=== PATIENT | female | born 1990 | race Caucasian/White ===

== ENCOUNTER 2017-04-22 21:36 | Emergency (ER) | payer BC, MEDICAID ==
--- NOTE | 2017-04-22 21:57 | Emergency Department Record ---
History of Present Illness - General Chief Complaint: Numbness Stated Complaint: NUMBNESS ON RT SIDE OF JAW Time Seen by Provider: 04/22/17 21:55 Source: Patient Mode of Arrival: Ambulatory Limitations: No limitations - History of Present Illness Initial Comments: 26 yo female presents to ED for evaluation of right sided facial numbness along her mandible. Patient reports that she "popped a pimple" on her right lateral neck just prior to her symptoms beginning. Patient denies facial weakness, inability to close her eye, or blurred vision symptoms. Patient denies health problems at her baseline. Onset/Timin -: Minutes(s) Location: Right face History of same: No Place: Home Severity: Mild Improves With: None Worsens With: None On Anticoagulants: No Context: Gradual onset Associated Symptoms: Denies other symptoms Treatments Prior to Arrival: None - Amarjit Coma Scale Eye Response: (4) Open spontaneously Motor Response: (6) Obeys commands Verbal Response: (5) Oriented Amarjit Total: 15 - Related Data Home Medications: Home Medications Medication Instructions Recorded Confirmed Last Taken Ibuprofen 600 mg PO DAILY PRN 04/22/17 04/22/17 Unknown Allergies/Adverse Reactions: Allergies Allergy/AdvReac Type Severity Reaction Status Date / Time No Known Drug Allergies Allergy Unverified 03/15/16 09:56 Travel Screening - Travel/Exposure Within Last 30 Days Have you traveled within the last 30 days?: No - Travel Symptoms Symptom Screening: None Review of Systems Constitutional: Denies: Chills, Fever, Malaise, Night sweats Eyes: Denies: Eye discharge, Eye pain ENT: Denies: Congestion, Ear pain, Epistaxis Respiratory: Denies: Cough, Dyspnea Cardiovascular: Denies: Chest pain, Dyspnea on exertion Endocrine: Denies: Fatigue, Heat or cold intolerance Gastrointestinal: Denies: Abdominal pain, Nausea, Vomiting Genitourinary: Denies: Incontinence, Retention Musculoskeletal: Denies: Back pain, Gout, Joint swelling Skin: Denies: Bruising, Change in color Neurological: Reports: Numbness. Denies: Abnormal gait, Confusion, Headache, Seizure Psychiatric: Denies: Anxiety Hematological/Lymphatic: Denies: Anemia, Blood Clots Past Medical History - SOCIAL HISTORY Smoking Status: Former smoker Alcohol Use: Rare Drug Use: None - RESPIRATORY Hx Respiratory Disorders: No - CARDIOVASCULAR Hx Cardio Disorders: No - NEURO Hx Neuro Disorders: No - GI Hx GI Disorders: No - Hx Genitourinary Disorders: No - ENDOCRINE Hx Endocrine Disorders: No - MUSCULOSKELETAL Hx Musculoskeletal Disorders: No - PSYCH Hx Psych Problems: No - HEMATOLOGY/ONCOLOGY Hx Hematology/Oncology Disorders: No Family Medical History Any Significant Family History?: Yes Hx Diabetes: Brother/Sister, Grandparents Hx Heart Disease: Father, Grandparents Hx Stroke: Father Physical Exam - General General Appearance: Alert, Oriented x3, Cooperative, No acute distress Limitations: No limitations - Head Head exam: Atraumatic, Normocephalic, Normal inspection Head exam detail: negative: Abrasion, Contusion, Perez's sign, General tenderness, Hematoma, Laceration - Eye Eye exam: Normal appearance. negative: Conjunctival injection, Periorbital swelling, Periorbital tenderness, Scleral icterus - ENT Ear exam: negative: Auricular hematoma, Auricular trauma Nasal Exam: negative: Active bleeding, Discharge, Dried blood, Foreign body Mouth exam: negative: Drooling, Laceration, Muffled voice, Tongue elevation - Neck Neck exam: Normal inspection. negative: Meningismus, Tenderness - Respiratory Respiratory exam: Normal lung sounds bilaterally. negative: Rales, Respiratory distress, Rhonchi, Stridor - Cardiovascular Cardiovascular Exam: Regular rate, Normal rhythm, Normal heart sounds - GI/Abdominal GI/Abdominal exam: Soft. negative: Rebound, Rigid, Tenderness - Rectal Rectal exam: Deferred - exam: Deferred - Extremities Extremities exam: Normal inspection. negative: Calf tenderness, Pedal edema, Tenderness - Back Back exam: Denies: CVA tenderness (R), CVA tenderness (L) - Neurological Neurological exam: Alert, CN II-XII intact, Normal gait, Oriented X3, Other ( NIH stroke scale 0) - Psychiatric Psychiatric exam: Normal affect, Normal mood - Skin Skin exam: Normal color. negative: Abrasion Type of lesion: negative: abrasion Course Vital Signs 04/22/17 21:43 Temperature 98.1 F Pulse Rate [ 74 Pulse Ox Probe] Respiratory 20 Rate Blood Pressure 137/83 [Left Arm] Pulse Ox 99 - Reevaluation(s) Reevaluation #1: 04/22/17 22:02 Patient is well appearing on examination with NIH stroke scale 0. Patient has no clinical signs of Russell's at this time, however the patient was counseled that her symptoms my progress into a Russell's over the next 1-3 days and what to expect should these symptoms occur. Patient verbalizes understanding of all instructions and appears stable for discharge at this time. Disposition Disposition: Discharge Clinical Impression: Right facial numbness Disposition: Home, Self-Care Condition: (2) Stable Instructions: Paresthesia (ED) Additional Instructions: Return to ED if your symptoms worsen or if you have any concerns. Follow-up with your family doctor in 3-5 days as directed. Forms: Patient Portal Access Time of Disposition: 21:57 Quality - Quality Measures Quality Measures: N/A - Blood Pressure Screening Does Patient Have Any of the Following: No Blood Pressure Classification: Pre-Hypertensive BP Reading Systolic Measurement: 137 Diastolic Measurement: 83 Screening for High Blood Pressure: < Pre-Hypertensive BP, F/U Documented > [ G8950] Pre-Hypertensive Follow-up Interventions: Referral to alternative/primary care provider.
== END 2017-04-22 22:05 | disposition home or self-care (01) ==
LOC: ER 21:36
DX: R20.0 Anesthesia of skin (principal); Z87.891 Personal history of nicotine dependence
CPT/HCPCS: 99282

== ENCOUNTER 2018-03-11 16:03 | Emergency (ER) | payer MEDICAID ==
--- NOTE | 2018-03-11 18:57 | Emergency Department Record ---
History of Present Illness - General Chief complaint: Mouth sores/ulcers Stated complaint: SORES ON LIPPS Time Seen by Provider: 03/11/18 18:53 Source: Patient Mode of Arrival: Ambulatory Limitations: No limitations - History of Present Illness Initial comments: 27 yo female presents to ED for evaluation of cold sores for the past 2-3 days, reports a history of cold sores that she has been taking OTC medications for at home. Patient denies fevers, chills, or recent illness. Patient denies health problems other than cold sores previously. MD complaint: Other Onset/Timin -: Days(s) Location: Upper lip, Lower lip Severity: Moderate Severity scale (1-10): 8 Quality: Burning Consistency: Constant Improves with: None Worsens with: None - Related Data Previous Rx's Medication Instructions Recorded Acyclovir 400 mg PO TID #15 tablet 03/11/18 Allergies Allergy/AdvReac Type Severity Reaction Status Date / Time No Known Drug Allergies Allergy Unverified 09/14/17 11:25 Travel Screening - Travel/Exposure Within Last 30 Days Have you traveled within the last 30 days?: No - Travel/Exposure Within Last Year Have you traveled outside the [place] in the last year?: No - Additonal Travel Details Have you been exposed to anyone with a communicable illness?: No - Travel Symptoms Symptom Screening: None Review of Systems Constitutional: Denies: Chills, Fever, Malaise, Night sweats Eyes: Denies: Eye discharge, Eye pain ENT: Denies: Congestion, Ear pain, Epistaxis Respiratory: Denies: Cough, Dyspnea Cardiovascular: Denies: Chest pain, Dyspnea on exertion Endocrine: Denies: Fatigue, Heat or cold intolerance Gastrointestinal: Denies: Abdominal pain, Nausea, Vomiting Genitourinary: Denies: Incontinence, Retention Musculoskeletal: Denies: Arthralgia, Back pain Skin: Denies: Bruising, Change in color Neurological: Denies: Abnormal gait, Confusion, Headache, Seizure Psychiatric: Denies: Anxiety Hematological/Lymphatic: Denies: Anemia, Blood Clots Past Medical History - SOCIAL HISTORY Smoking Status: Former smoker Alcohol Use: None Drug Use: None - RESPIRATORY Hx Respiratory Disorders: No - CARDIOVASCULAR Hx Cardio Disorders: No - NEURO Hx Neuro Disorders: No - GI Hx GI Disorders: No - Hx Genitourinary Disorders: No - ENDOCRINE Hx Endocrine Disorders: No - MUSCULOSKELETAL Hx Musculoskeletal Disorders: No - PSYCH Hx Psych Problems: No - HEMATOLOGY/ONCOLOGY Hx Hematology/Oncology Disorders: No Family Medical History Any Significant Family History?: Yes Hx Diabetes: Brother/Sister, Grandparents Hx Heart Disease: Father, Grandparents Hx Stroke: Father Physical Exam - General General Appearance: Alert, Oriented x3, Cooperative, Mild distress Limitations: No limitations - Head Head exam: Atraumatic, Normocephalic, Normal inspection Head exam detail: negative: Abrasion, Contusion, Perez's sign, General tenderness, Hematoma, Laceration - Eye Eye exam: Normal appearance. negative: Conjunctival injection, Periorbital swelling, Periorbital tenderness, Scleral icterus - ENT ENT exam: Other (Oral lesions to the upper and lower lips bilaterally) Ear exam: negative: Auricular hematoma, Auricular trauma Nasal Exam: negative: Active bleeding, Discharge, Dried blood, Foreign body Mouth exam: negative: Drooling, Laceration, Muffled voice, Tongue elevation Throat exam: negative: Tonsillar erythema, Tonsillomegaly, R peritonsillar mass , L peritonsillar mass - Neck Neck exam: Normal inspection. negative: Meningismus, Tenderness - Respiratory Respiratory exam: Normal lung sounds bilaterally. negative: Rales, Respiratory distress, Rhonchi, Stridor - Cardiovascular Cardiovascular Exam: Regular rate, Normal rhythm, Normal heart sounds - GI/Abdominal GI/Abdominal exam: Soft. negative: Rebound, Rigid, Tenderness - Rectal Rectal exam: Deferred - exam: Deferred - Extremities Extremities exam: Normal inspection. negative: Pedal edema, Tenderness - Back Back exam: Denies: CVA tenderness (R), CVA tenderness (L) - Neurological Neurological exam: Alert, Normal gait, Oriented X3 - Psychiatric Psychiatric exam: Normal affect, Normal mood - Skin Skin exam: Normal color. negative: Abrasion Type of lesion: negative: abrasion Course Vital Signs 03/11/18 17:48 Temperature 97.9 F Pulse Rate 72 Respiratory 20 Rate Blood Pressure 132/85 Pulse Ox 99 - Reevaluation(s) Reevaluation #1: 03/11/18 19:00 History and examination appears c/w oral herpes, will treat with acyclovir as directed. Patient appears stable for discharge at this time. Disposition Disposition: Discharge Clinical Impression: Recurrent cold sores Disposition: Home, Self-Care Condition: (2) Stable Instructions: Oral Herpes Simplex Virus Infections (ED) Additional Instructions: Return to ED if your symptoms worsen or if you have any concerns. Valacyclovir as directed. Follow-up with your family doctor in 3-5 days as directed. Prescriptions: Acyclovir 400 mg PO TID #15 tablet Forms: Patient Portal Access Time of Disposition: 18:55 Quality - Quality Measures Quality Measures: N/A - Blood Pressure Screening Does Patient Have Any of the Following: No Blood Pressure Classification: Pre-Hypertensive BP Reading Systolic Measurement: 132 Diastolic Measurement: 85 Screening for High Blood Pressure: < Pre-Hypertensive BP, F/U Documented > [ G8950] Pre-Hypertensive Follow-up Interventions: Referral to alternative/primary care provider.
== END 2018-03-11 19:09 | disposition home or self-care (01) ==
LOC: ER 16:03
DX: B00.1 Herpesviral vesicular dermatitis (principal); Z87.891 Personal history of nicotine dependence
CPT/HCPCS: 99282

== ENCOUNTER 2018-08-12 09:33 | Emergency (ER) | payer MEDICAID ==
--- NOTE | 2018-08-12 09:57 | Emergency Department Record ---
History of Present Illness - General Chief complaint: Mouth sores/ulcers Stated complaint: OUTBREAK OF COLD SORES Time Seen by Provider: 08/12/18 09:56 Source: Patient Mode of Arrival: Ambulatory Limitations: No limitations - History of Present Illness Initial comments: 27 yo female presents with painful cold sores in her mouth for several days. No difficulty swallowing. No fevers. No swelling. No sore throat. Severity: Mild Severity scale (1-10): 2 Quality: Aching Consistency: Constant Improves with: None Worsens with: None - Related Data Previous Rx's Medication Instructions Recorded Valacyclovir HCl [Valtrex] 500 mg PO Q12H #14 tablet 08/12/18 Allergies Allergy/AdvReac Type Severity Reaction Status Date / Time No Known Drug Allergies Allergy Verified 08/12/18 09:50 Travel Screening - Travel/Exposure Within Last 30 Days Have you traveled within the last 30 days?: No Review of Systems Constitutional: Denies: Chills, Fever, Malaise, Weakness Eyes: Denies: Eye discharge, Eye pain, Photophobia, Vision change ENT: Reports: Other. Denies: Congestion, Dental pain, Ear pain, Epistaxis, Throat pain Respiratory: Denies: Cough, Dyspnea Cardiovascular: Denies: Chest pain, Palpitations, Syncope Endocrine: Denies: Fatigue Gastrointestinal: Denies: Abdominal pain, Diarrhea, Nausea, Vomiting Genitourinary: Denies: Dysuria, Urgency Musculoskeletal: Denies: Arthralgia, Back pain, Myalgia Skin: Denies: Bruising, Change in color, Rash Neurological: Denies: Headache Psychiatric: Denies: Anxiety Hematological/Lymphatic: Denies: Easy bleeding, Easy bruising Past Medical History - SOCIAL HISTORY Smoking Status: Former smoker Alcohol Use: None Drug Use: None - RESPIRATORY Hx Respiratory Disorders: No - CARDIOVASCULAR Hx Cardio Disorders: No - NEURO Hx Neuro Disorders: No - GI Hx GI Disorders: No - Hx Genitourinary Disorders: No - ENDOCRINE Hx Endocrine Disorders: No - MUSCULOSKELETAL Hx Musculoskeletal Disorders: No - PSYCH Hx Psych Problems: No - HEMATOLOGY/ONCOLOGY Hx Hematology/Oncology Disorders: No Family Medical History Any Significant Family History?: Yes Hx Diabetes: Brother/Sister, Grandparents Hx Heart Disease: Father, Grandparents Hx Stroke: Father Physical Exam - General General Appearance: Alert, Oriented x3, Cooperative, No acute distress Limitations: No limitations - Head Head exam: Atraumatic, Normal inspection Image of Face/Head: 1 - scattered small papules, erythema - Eye Eye exam: Normal appearance, PERRL. negative: Conjunctival injection, Periorbital swelling, Scleral icterus - ENT ENT exam: Normal exam, Mucous membranes moist. negative: Mucous membranes dry, Normal orophraynx Ear exam: Normal external inspection Nasal Exam: Normal inspection Mouth exam: Normal external inspection Teeth exam: Normal inspection Throat exam: negative: Tonsillar erythema, Tonsillomegaly, Tonsillar exudate, R peritonsillar mass, L peritonsillar mass - Neck Neck exam: Normal inspection. negative: Lymphadenopathy, Tenderness - Neurological Neurological exam: Alert, Oriented X3 - Psychiatric Psychiatric exam: Normal affect, Normal mood - Skin Skin exam: Dry, Intact, Normal color, Warm Course Vital Signs 08/12/18 09:48 Temperature 98.6 F Pulse Rate 85 Respiratory 20 Rate Blood Pressure 121/78 Pulse Ox 96 Disposition Disposition: Discharge Clinical Impression: Viral stomatitis Disposition: Home, Self-Care Condition: (1) Good Instructions: Mouth Care (ED), Gingivostomatitis (ED) Additional Instructions: Call your doctor for the next available follow up appointment Review this ER visit and the tests performed with your family doctor Return to the ER for a recheck if worse, any new concerns or questions Take the prescriptions provided as directed Prescriptions: Valacyclovir HCl [Valtrex] 500 mg PO Q12H #14 tablet Forms: Patient Portal Access Time of Disposition: 10:04 Quality - Quality Measures Quality Measures: N/A - Blood Pressure Screening Does Patient Have Any of the Following: No Blood Pressure Classification: Pre-Hypertensive BP Reading Systolic Measurement: 121 Diastolic Measurement: 78 Screening for High Blood Pressure: < Pre-Hypertensive BP, F/U Documented > [G8950] Pre-Hypertensive Follow-up Interventions: Referral to alternative/primary care provider.
== END 2018-08-12 10:11 | disposition home or self-care (01) ==
LOC: ER 09:33
DX: K12.1 Other forms of stomatitis (principal); Z87.891 Personal history of nicotine dependence
CPT/HCPCS: 99282

== ENCOUNTER 2019-01-21 07:28 | Day surgery (SDC) | payer MEDICAID ==
[~2019-01-21 07:28] MED LIST: ACETAMINOPHEN 1,000 MG/100 ML BTL IVPB ONE; FAMOTIDINE 20MG TABLET PO ONE; METOCLOPRAMIDE 10 MG TABLET PO ONE; SCOPOLAMINE 1 PATCH TDSY TD ONE
[2019-01-21] MEDS ORDERED: LIDOCAINE 2% MDV (20MG/ML) 20ML VIAL IV ONE (07:29)
[2019-01-21] MEDS ORDERED: DEXAMETHASONE 4 MG/ML 1ML VIAL IVP ONE (07:29)
[2019-01-21] MEDS ORDERED: ROCURONIUM BROMIDE 50MG/5ML VIAL IV ONE (07:29)
[2019-01-21] MEDS ORDERED: *PACU ONLY* KETAMINE HCL 10 MG/ML (20ML) VIAL IV ONE (07:29)
[2019-01-21] MEDS ORDERED: LABETALOL HCL 5MG/ML, 20ML VIAL IV ONE (07:29)
[2019-01-21] MEDS ORDERED: MIDAZOLAM HCL 2MG/2ML VIAL IV ONE (07:29)
[2019-01-21] MEDS ORDERED: DESFLURANE 240 ML BTL INH ONE (07:29)
[2019-01-21] MEDS ORDERED: SUGAMMADEX SODIUM 200 MG/2 ML VIAL IV ONE (07:29)
[2019-01-21] MEDS ORDERED: PROPOFOL 10 MG/ML VIAL IV ONE (07:29)
[2019-01-21] MEDS ORDERED: KETOROLAC 30 MG/ML VIAL IVP ONE (07:29)
[2019-01-21] MEDS ORDERED: ONDANSETRON HCL IV 4 MG/2 ML VIAL IVP ONE (07:29)
[2019-01-21] MEDS ORDERED: RINGERS SOLUTION,LACTATED 1,000 ML IV ONE (08:18)
[2019-01-21] MEDS ORDERED: BUPIVACAINE 0.25% W/EPI MPF 30ML VIAL SQ ONE (09:45)
[2019-01-21] MEDS ORDERED: HYDROCODONE/APAP 5/325MG TABLET PO ONE (10:26)
--- NOTE | 2019-01-22 08:30 | Operative Note ---
DATE OF SURGERY: 01/21/2019 SURGEON: Phong Sol DO PREOPERATIVE DIAGNOSIS: Chronic cholecystitis. POSTOPERATIVE DIAGNOSIS: Chronic cholecystitis. OPERATION: Laparoscopic cholecystectomy. INDICATION: The patient is a 28-year-old female who was seen preoperatively. She was having issues with ongoing right subcostal postprandial pain. We did discuss cholecystectomy versus medical management. She desired surgical intervention. Risks include but are not limited to bleeding, infection, ductal injury, possible conversion to open, postoperative bile leak. I let her know she was at high risk for postop complications due to her morbid obesity. PROCEDURE: Thereafter, consent was signed and questions answered. She was taken to the operating room and placed in a supine position. General anesthesia was administered per the department of anesthesia. The patient's abdomen was prepped and draped in the usual sterile fashion. The infraumbilical region was anesthetized with a total of 5 mL of 0.25% Sensorcaine with epinephrine. A 2.5 cm infraumbilical incision was made. This was carried down bluntly to the anterior rectus fascia. This was incised. Stelal clamps were placed on the fascial edges and brought up into the wound. Stay sutures of 0 Vicryl were placed. Posterior rectus sheath was identified and incised. The peritoneal cavity was entered bluntly. At this time, a 10 mm blunt Ramesh port was placed. Adequate pneumoperitoneum was established. Under direct visualization, additional 5 mm epigastric and two 5 mm right subcostal ports were placed. The patient was rotated into reverse Trendelenburg with rotation to left. The gallbladder was retracted in a cephalad and lateral direction opening up the angle of Calot. The hepatocystic triangle was thoroughly dissected out. There was no aberrant anatomy, no posterior ductal structures. The cystic duct and cystic artery were clearly identified. Each one was doubly clipped and cut in a standard fashion. Gallbladder was then taken off the liver bed with ADRIEN Harmonic. This was extracted through the umbilical port. Right upper quadrant was rechecked and found to be hemostatic. No bleeding. No bile leaking. No bowel injury noted. The patient was leveled out. The pneumoperitoneum was released. All ports were removed. The fascia was closed with 0 Vicryl in a [id number] fashion. The skin at all ports was closed with 4-0 Vicryl. The patient was taken to the recovery room in stable condition. FINDINGS AT THE TIME OF SURGERY: Chronic cholecystitis. MTDD
== END 2019-01-21 10:44 | disposition home or self-care (01) ==
LOC: SUR 07:28
PROVIDERS: ATTEND Surgery
DX: K81.1 Chronic cholecystitis (principal); E28.2 Polycystic ovarian syndrome; E66.01 Morbid (severe) obesity due to excess calories
CPT/HCPCS: 81025; J1885; J2405; J3490; J7120

== ENCOUNTER 2019-01-23 22:11 | Emergency (ER) | payer MEDICAID ==
--- NOTE | 2019-01-23 22:24 | Emergency Department Record ---
History of Present Illness - General Chief Complaint: Wound, check Stated Complaint: SURGICAL WOUND OPENING/GALL BLADDER Time Seen by Provider: 01/23/19 22:22 Source: Patient Mode of arrival: Ambulatory Limitations: No limitations - History of Present Illness Initial Comments: 28 yo female presents to ED for evaluation following laparoscopic gallbladder surgery yesterday for evaluation of one of her laparoscopic wound sites. Patient reports that the wound "opened up" at home with mild clear drainage present, denies redness, fevers, chills, or purulent drainage from the wound site. Patient reports that Dr. Sol performed her surgery, denies complications following her surgery. MD Complaint: Wound re-check Onset/Timin -: Days(s) Initial Visit For: Laceration Returns Today for: Wound recheck Symptoms Since Prior Visit: Other Associated Symptoms: None - Related Data Allergies Allergy/AdvReac Type Severity Reaction Status Date / Time peanut AdvReac Intermediate cold sores Verified 01/11/19 14:07 dark chocolate AdvReac Intermediate cold sores Uncoded 01/11/19 14:07 jello AdvReac Intermediate cold sores Uncoded 01/11/19 14:07 Review of Systems Constitutional: Denies: Chills, Fever, Malaise, Night sweats Eyes: Denies: Eye discharge, Eye pain ENT: Denies: Congestion, Ear pain, Epistaxis Respiratory: Denies: Cough, Dyspnea Cardiovascular: Denies: Chest pain, Dyspnea on exertion Endocrine: Denies: Fatigue, Heat or cold intolerance Gastrointestinal: Denies: Abdominal pain, Nausea, Vomiting Genitourinary: Denies: Incontinence, Retention Musculoskeletal: Denies: Arthralgia, Back pain Skin: Reports: Other (Wound "opened up" infra-umbilical region). Denies: Bruising, Change in color Neurological: Denies: Abnormal gait, Confusion, Headache, Seizure Psychiatric: Denies: Anxiety Hematological/Lymphatic: Denies: Anemia, Blood Clots Past Medical History - SOCIAL HISTORY Smoking Status: Former smoker - RESPIRATORY Hx Respiratory Disorders: No - CARDIOVASCULAR Hx Cardio Disorders: No - NEURO Hx Neuro Disorders: No - GI Hx GI Disorders: No - Hx Genitourinary Disorders: No - ENDOCRINE Hx Endocrine Disorders: No - MUSCULOSKELETAL Hx Musculoskeletal Disorders: No - PSYCH Hx Psych Problems: No - HEMATOLOGY/ONCOLOGY Hx Hematology/Oncology Disorders: No Family Medical History Hx Diabetes: Brother/Sister, Grandparents Hx Heart Disease: Father, Grandparents Hx Stroke: Father Physical Exam - General General Appearance: Alert, Oriented x3, Cooperative, No acute distress Limitations: No limitations - Head Head exam: Atraumatic, Normocephalic, Normal inspection Head exam detail: negative: Abrasion, Contusion, Perez's sign, General tenderness, Hematoma, Laceration - Eye Eye exam: Normal appearance. negative: Conjunctival injection, Periorbital swelling, Periorbital tenderness, Scleral icterus - ENT Ear exam: negative: Auricular hematoma, Auricular trauma Nasal Exam: negative: Active bleeding, Discharge, Dried blood, Foreign body Mouth exam: negative: Drooling, Laceration, Muffled voice, Tongue elevation - Neck Neck exam: Normal inspection. negative: Meningismus, Tenderness - Respiratory Respiratory exam: Normal lung sounds bilaterally. negative: Rales, Respiratory distress, Rhonchi, Stridor - Cardiovascular Cardiovascular Exam: Regular rate, Normal rhythm, Normal heart sounds - GI/Abdominal GI/Abdominal exam: Soft, Other (Mild loosening of the sutures of the infra- umbilical incision with mild serous draiange present, no erythema around the wound, no evidence for infection on examination.). negative: Rebound, Rigid, Tenderness - Rectal Rectal exam: Deferred - exam: Deferred - Extremities Extremities exam: Normal inspection. negative: Pedal edema, Tenderness - Back Back exam: Denies: CVA tenderness (R), CVA tenderness (L) - Neurological Neurological exam: Alert, Normal gait, Oriented X3 - Psychiatric Psychiatric exam: Normal affect, Normal mood - Skin Skin exam: Normal color. negative: Abrasion Type of lesion: negative: abrasion Course - Reevaluation(s) Reevaluation #1: 01/23/19 22:28 Steri-strips were applied to close the patient's surgical site Instructed to call Dr. Sol's office for a follow-up appointment. Patient appears stable for discharge at this time. Disposition Disposition: Discharge Clinical Impression: Surgical wound dehiscence Qualifiers: Encounter type: initial encounter Qualified Code(s): T81.31XA - Disruption of external operation (surgical) wound, not elsewhere classified, initial encounter Disposition: Home, Self-Care Condition: (2) Stable Instructions: Steristrips (ED) Additional Instructions: Return to ED if your symptoms worsen or if you have any concerns. Call Dr. Sol's office in the morning for a follow-up appointment. Keep steri-strips clean, dry until seen by Dr. Sol. Forms: Patient Portal Access Time of Disposition: 22:24 Quality - Quality Measures Quality Measures: N/A - Blood Pressure Screening Does Patient Have Any of the Following: No Systolic Measurement: ~
== END 2019-01-23 22:35 | disposition home or self-care (01) ==
LOC: ER 22:11
DX: T81.31XA Disruption of external operation (surgical) wound, not elsewhere classified, initial encounter (principal)
CPT/HCPCS: 99282

== ENCOUNTER 2019-03-14 23:35 | Emergency (ER) | payer MEDICAID ==
--- NOTE | 2019-03-14 23:43 | Emergency Department Record ---
History of Present Illness - General Chief complaint: ENT Stated complaint: THROAT PAIN Time Seen by Provider: 03/14/19 23:36 Source: Patient Mode of Arrival: Ambulatory Limitations: No limitations - History of Present Illness Initial comments: 28 yo female presents with about two weeks of a fullness in the throat. She had a mild upper respiratory illness that preceded this. The feeling is like a mild vague pressure in the lower throat. No voice changes. No fever. No swelling. No nausea, vomiting or diarrhea. No sweating. No rash. No difficulty swallowing but she feels the vague sensation. No cough, chest pain, or abdominal pain. MD complaint: Sore throat -: Week(s) (2) Location: Other Severity: Moderate Quality: Other (Fullness) Consistency: Intermittent Improves with: None Worsens with: Swallowing Context-Epistaxis: Other Context- Dental: Other Context- Ear: Other Associated Symptoms: Other (Recent URI) - Related Data Allergies Allergy/AdvReac Type Severity Reaction Status Date / Time peanut AdvReac Intermediate cold sores Verified 03/14/19 23:48 dark chocolate AdvReac Intermediate cold sores Uncoded 01/11/19 14:07 jello AdvReac Intermediate cold sores Uncoded 01/11/19 14:07 Review of Systems Constitutional: Denies: Chills, Fever, Malaise, Night sweats, Weakness Eyes: Denies: Eye discharge ENT: Reports: As per HPI, Throat pain. Denies: Congestion, Epistaxis Respiratory: Denies: Cough, Dyspnea, Hemoptysis, Stridor, Wheezes Cardiovascular: Denies: Chest pain, Syncope Endocrine: Denies: Fatigue Gastrointestinal: Denies: Abdominal pain, Diarrhea, Nausea, Vomiting Genitourinary: Denies: Dysuria, Urgency Musculoskeletal: Denies: Arthralgia, Back pain, Myalgia Skin: Denies: Bruising, Change in color, Rash Neurological: Denies: Headache Psychiatric: Denies: Anxiety Hematological/Lymphatic: Denies: Easy bleeding, Easy bruising Past Medical History - SOCIAL HISTORY Smoking Status: Former smoker - RESPIRATORY Hx Respiratory Disorders: No - CARDIOVASCULAR Hx Cardio Disorders: No - NEURO Hx Neuro Disorders: No - GI Hx GI Disorders: No - Hx Genitourinary Disorders: No - ENDOCRINE Hx Endocrine Disorders: No - MUSCULOSKELETAL Hx Musculoskeletal Disorders: No - PSYCH Hx Psych Problems: No - HEMATOLOGY/ONCOLOGY Hx Hematology/Oncology Disorders: No Family Medical History Hx Diabetes: Brother/Sister, Grandparents Hx Heart Disease: Father, Grandparents Hx Stroke: Father Physical Exam - General General Appearance: Alert, Oriented x3, Cooperative, No acute distress Limitations: No limitations - Head Head exam: Atraumatic, Normal inspection - Eye Eye exam: Normal appearance. negative: Conjunctival injection - ENT ENT exam: Normal exam, Mucous membranes moist, Normal orophraynx. negative: Mucous membranes dry Ear exam: Normal external inspection Nasal Exam: Normal inspection Mouth exam: Normal external inspection, Tongue normal, Other (Normal uvula without swelling). negative: Drooling, Muffled voice (clear voice), Tongue elevation, Trismus Teeth exam: Normal inspection. negative: Gingival enlargement Throat exam: negative: Tonsillar erythema, Tonsillomegaly, Tonsillar exudate, R peritonsillar mass, L peritonsillar mass - Neck Neck exam: Full ROM, Thyromegaly (Equivocal enlargment of the thyroid, the examination difficult due to habitus). negative: Normal inspection, Lymphadenopathy, Meningismus, Tenderness - Respiratory Respiratory exam: Normal lung sounds bilaterally. negative: Rhonchi, Stridor, Wheezes - Cardiovascular Cardiovascular Exam: Regular rate, Normal rhythm, Normal heart sounds - Rectal Rectal exam: Deferred - exam: Deferred - Neurological Neurological exam: Alert, Oriented X3 - Psychiatric Psychiatric exam: Normal affect, Normal mood. negative: Agitated, Anxious - Skin Skin exam: Dry, Intact, Normal color, Warm Course - Reevaluation(s) Reevaluation #1: The patient appears comfortable, normal voice, normal examination of the oral cavity and its anatomy The thyroid might feel enlarged but limitation due to habitus. No sign of infectious process, no obvious mass or abnormal physical examination findings. I recommend labs and ST Neck We also discussed possible outpatient US of the thyroid 03/15/19 00:07 03/15/19 00:21 The CBC is normal The CMP is normal The HCG is negative 03/15/19 00:32 TSH is normal 03/15/19 00:32 ST Neck is negative No indication for CT at this time given the large radiation exposure with normal exam and labs Recommendation is for close follow up with her PCP Consider US, follow up CT, direct visualization with GI or ENT Medical Decision Making - Lab Data Result diagrams: 03/14/19 23:45 03/14/19 23:45 Disposition Disposition: Discharge Clinical Impression: Throat pain Disposition: Home, Self-Care Condition: (1) Good Instructions: Dysphagia (ED) Additional Instructions: Call your doctor tomorrow Consider an outpatient ultrasound of the thyroid to further evaluate your symptoms Be seen immediately if worse, swelling, fever, vomiting, voice changes or any new concerns Forms: Patient Portal Access Time of Disposition: 00:32 Quality - Quality Measures Quality Measures: N/A - Blood Pressure Screening Does Patient Have Any of the Following: No Blood Pressure Classification: Pre-Hypertensive BP Reading Systolic Measurement: 141 Diastolic Measurement: 86 Screening for High Blood Pressure: < Pre-Hypertensive BP, F/U Documented > [G8950] Pre-Hypertensive Follow-up Interventions: Referral to alternative/primary care provider.
[2019-03-15] LABS: ABSOLUTE NEUTROPHIL COUNT 6.53; BASO % 0.5 % (0-6); EOS % 2.3 % (0-6); GRAN % 63.6 % (47-80); HEMATOCRIT 38.6 % (35.0-47.0); HEMOGLOBIN 12.7 gm/dl (11.6-16.0); LYMPH % 27.7 % (16-45); MEAN CORPUSCULAR HGB CONC 32.9 g/dl (32-36); MEAN PLATELET VOLUME 9.2 fl (7.4-10.4); MONO % 5.9 % (0-9); PLATELET COUNT 369 K/uL (130-400); RED BLOOD COUNT 4.54 M/uL (3.80-5.40); RED CELL DISTRIBUTION WIDTH 13.6 % (11.5-14.5); WHITE BLOOD COUNT W/O DIFF 10.3 K/uL (4.2-12.2)
[2019-03-15 00:15] LABS: BLOOD UREA NITROGEN 13 mg/dL (6-20); CREATININE 0.7 mg/dL (0.5-0.9); EST GLOMERULAR FILTRATION RATE > 60 mL/min
[2019-03-15 00:17] LABS: GLUCOSE,RANDOM 114 mg/dL (74-109)
--- NOTE | 2019-03-15 00:21 | RADIOLOGY REPORT ---
EXAMINATION: Soft Tissue Neck EXAM DATE: 03/15/2019 12:18 AM TECHNIQUE: AP and lateral INDICATION: full feeling in the throat COMPARISON: None ENCOUNTER: Initial FINDINGS: Epiglottis and aryepiglottic folds unremarkable. Prevertebral soft tissues are normal. No radiopaque foreign body. IMPRESSION: Normal exam. Dictated by: Mitesh Obando MD on 03/15/2019 12:18 AM. .
[2019-03-15 00:31] LABS: THYROID STIMULATING HORMONE 3.89 uIU/mL (0.270-4.20)
== END 2019-03-15 00:44 | disposition home or self-care (01) ==
LOC: ER 23:35
DX: R07.0 Pain in throat (principal); R13.10 Dysphagia, unspecified; Z87.891 Personal history of nicotine dependence
CPT/HCPCS: 70360; 80048; 81025; 84443; 85025; 99284

== ENCOUNTER 2019-03-19 01:26 | Emergency (ER) | payer MEDICAID ==
[2019-03-19] MEDS: MAGNESIUM HYDROXIDE/AL HYDROX 30 ML, LIDOCAINE VISC 2% 15ML 15 ML PO ONE ×2 (01:39)
--- NOTE | 2019-03-19 01:41 | Emergency Department Record ---
History of Present Illness - General Chief complaint: ENT Stated complaint: FOOD STUCK IN THROAT Time Seen by Provider: 03/19/19 01:27 Source: Patient Mode of Arrival: Ambulatory Limitations: No limitations - History of Present Illness Initial comments: 28 yo female presents to ED for evaluation of painful swallowing after eating pizza 1 hour ago. Patient reports numerous episodes of "gagging" x 9 over the past 1 hour. Patient is able to drink fluids with only painful swallowing symptoms, no vomiting on examination and patient is controlling her secretions on examination. Patient was seen and evaluated for similar symptoms 4 days ago, ST neck and laboratory studies were negative for an acute process. Patient denies health problems at her baseline. MD complaint: Difficulty swallowing Onset/Timin -: Hour(s) Severity: Moderate Quality: Sharp, Stabbing Consistency: Intermittent Improves with: None Worsens with: None - Related Data Allergies Allergy/AdvReac Type Severity Reaction Status Date / Time peanut AdvReac Intermediate cold sores Verified 03/14/19 23:48 dark chocolate AdvReac Intermediate cold sores Uncoded 01/11/19 14:07 jello AdvReac Intermediate cold sores Uncoded 01/11/19 14:07 Review of Systems Constitutional: Denies: Chills, Fever, Malaise, Night sweats Eyes: Denies: Eye discharge, Eye pain ENT: Reports: Throat pain. Denies: Congestion, Ear pain, Epistaxis Respiratory: Denies: Cough Cardiovascular: Denies: Chest pain, Dyspnea on exertion Endocrine: Denies: Fatigue, Heat or cold intolerance Gastrointestinal: Denies: Abdominal pain, Nausea, Vomiting Genitourinary: Denies: Incontinence, Retention Musculoskeletal: Denies: Arthralgia, Back pain Skin: Denies: Bruising, Change in color Neurological: Denies: Abnormal gait, Confusion, Headache, Seizure Psychiatric: Denies: Anxiety Hematological/Lymphatic: Denies: Anemia, Blood Clots Past Medical History - SOCIAL HISTORY Smoking Status: Former smoker - RESPIRATORY Hx Respiratory Disorders: No - CARDIOVASCULAR Hx Cardio Disorders: No - NEURO Hx Neuro Disorders: No - GI Hx GI Disorders: No - Hx Genitourinary Disorders: No - ENDOCRINE Hx Endocrine Disorders: No - MUSCULOSKELETAL Hx Musculoskeletal Disorders: No - PSYCH Hx Psych Problems: No - HEMATOLOGY/ONCOLOGY Hx Hematology/Oncology Disorders: No Family Medical History Hx Diabetes: Brother/Sister, Grandparents Hx Heart Disease: Father, Grandparents Hx Stroke: Father Physical Exam - General General Appearance: Alert, Oriented x3, Cooperative, No acute distress, Other (Able to drink fluids without difficulty on examination.) Limitations: No limitations - Head Head exam: Atraumatic, Normocephalic, Normal inspection Head exam detail: negative: Abrasion, Contusion, Perez's sign, General tenderness, Hematoma, Laceration - Eye Eye exam: Normal appearance. negative: Conjunctival injection, Periorbital swelling, Periorbital tenderness, Scleral icterus - ENT Ear exam: negative: Auricular hematoma, Auricular trauma Nasal Exam: negative: Active bleeding, Discharge, Dried blood, Foreign body Mouth exam: negative: Drooling, Laceration, Muffled voice, Tongue elevation - Neck Neck exam: Normal inspection. negative: Meningismus, Tenderness - Respiratory Respiratory exam: Normal lung sounds bilaterally. negative: Rales, Respiratory distress, Rhonchi - Cardiovascular Cardiovascular Exam: Regular rate, Normal rhythm, Normal heart sounds - GI/Abdominal GI/Abdominal exam: Soft. negative: Rebound, Rigid, Tenderness - Rectal Rectal exam: Deferred - exam: Deferred - Extremities Extremities exam: Normal inspection. negative: Pedal edema, Tenderness - Back Back exam: Denies: CVA tenderness (R), CVA tenderness (L) - Neurological Neurological exam: Alert, Normal gait, Oriented X3 - Psychiatric Psychiatric exam: Normal affect, Normal mood - Skin Skin exam: Normal color. negative: Abrasion Type of lesion: negative: abrasion Course Vital Signs 03/19/19 01:34 Temperature 98.0 F Pulse Rate [ 89 Left] Respiratory 16 Rate Blood Pressure 135/81 [Left] Pulse Ox 99 - Reevaluation(s) Reevaluation #1: 03/19/19 01:39 Patient was seen examined Previous notes including laboratory studies and ST neck radiographs were reviewed and are grossly unremarkable. Patient is controlling her secretions and tolerating liquids without difficulty. No clinical evidence for esophageal obstruction on examination. Will provide GI cocktail with viscous lidocaine and re-examine the patient. Reevaluation #2: 03/19/19 01:58 Patient was re-examined, swallowing without difficulty and reports improvement following GI cocktail. Counseled the patient to call her PCP tomorrow for follow-up and likely swallow- study on an outpatient basis as the test cannot be performed at [facility]. Patient appears stable for discharge at this time. Disposition Disposition: Discharge Clinical Impression: Dysphagia Qualifiers: Dysphagia type: esophageal phase Qualified Code(s): R13.10 - Dysphagia, unspecified Disposition: Home, Self-Care Condition: (2) Stable Instructions: Dysphagia (ED) Additional Instructions: Return to ED if your symptoms worsen or if you have any concerns. Maalox as directed. Follow-up with your family doctor in 3-5 days as directed without fail. Forms: Patient Portal Access Time of Disposition: 01:59 Quality - Quality Measures Quality Measures: N/A - Blood Pressure Screening Does Patient Have Any of the Following: No Blood Pressure Classification: Pre-Hypertensive BP Reading Systolic Measurement: 135 Diastolic Measurement: 81 Screening for High Blood Pressure: < Pre-Hypertensive BP, F/U Documented > [G8950] Pre-Hypertensive Follow-up Interventions: Referral to alternative/primary care provider.
== END 2019-03-19 02:06 | disposition home or self-care (01) ==
LOC: ER 01:26
DX: R13.10 Dysphagia, unspecified (principal); R09.89 Other specified symptoms and signs involving the circulatory and respiratory systems; R11.11 Vomiting without nausea; Z87.891 Personal history of nicotine dependence
CPT/HCPCS: 99283